=== PATIENT | female | born 1965 | race Caucasian/White ===

== ENCOUNTER 2017-10-05 09:35 | Day surgery (SDC) | payer OTHER ==
[2017-10-05] MEDS ORDERED: LIDOCAINE 2% (SDV) 5 ML INJ (11:14)
[2017-10-05] MEDS ORDERED: PROPOFOL 40 ML (11:14)
== END 2017-10-05 16:27 | disposition home or self-care (01) ==
LOC: GIL 09:35
DX: Z12.11 Encounter for screening for malignant neoplasm of colon (principal); K64.8 Other hemorrhoids; E11.9 Type 2 diabetes mellitus without complications
CPT/HCPCS: 45378; 82962